=== PATIENT | female | born 1970 | race Caucasian/White ===

== ENCOUNTER 2023-11-07 14:59 | Day surgery (SDC) | payer OTHER ==
[2023-11-07] VITALS (7 sets, daily range): BP systolic 97–117; BP diastolic 65–73; PULSE 56–68; TEMP 97.5–98
[~2023-11-07] VITALS: Ht 170.2 cm; Wt 98.5 kg
[~2023-11-07 14:59] MED LIST: NORCO 325 MG-51 TAB PO; PERCOCET 325 MG1 TA2 PO
[2023-11-07] MEDS ORDERED: Ondansetron 4 MG/2 ML VIAL IV ONE (15:45)
[2023-11-07] MEDS ORDERED: NS 1,000 ML IV ONE (15:45)
[2023-11-07] MEDS ORDERED: Morphine 4 MG/ML VIAL IV PRN (15:45)
[2023-11-07 15:53] LABS: BASO # 0.1 K/mm3 (0.0-0.2); BASO % 0.4 % (0.0-2.0); EOS # 0.1 K/mm3 (0.0-0.7); EOS % 0.8 % (0.0-4.0); GRAN # 9.7 K/mm3 (1.4-6.5); GRAN % 82.7 % (42.2-75.2); HEMOGLOBIN 12.1 g/dl (12.5-16.0); LYMPH # 1.1 K/mm3 (1.2-3.4); LYMPH % 9.5 % (20.0-51.0); MEAN CELL VOLUME 90 fl (80.0-100.0); MEAN CORPUSCULAR HEMOGLOBIN 30 pg (27-31); MEAN CORPUSCULAR HGB CONC 33 g/dl (33.0-37.0); MEAN PLATELET VOLUME 9.5 fl (7.4-10.4); MONO # 0.7 K/mm3 (0.1-0.6); MONO % 6.3 % (1.7-9.3); PLATELET COUNT 202 K/mm3 (130-400); RED BLOOD COUNT 4.04 M/mm3 (4.10-5.30); REDCELL DISTRIBUTION WIDTH-CV 12.2 % (11.5-14.5)
[2023-11-07 15:55] LABS: HEMATOCRIT 36.3 % (37.0-47.0)
[2023-11-07 16:09] LABS: ALBUMIN 3.7 g/dL (3.5-5.0); BILIRUBIN,TOTAL 0.3 mg/dL (0.2-1.2); CALCIUM 8.9 mg/dL (8.4-10.2); CREATININE, serum 0.83 mg/dL (0.57-1.11); POTASSIUM 4.1 mEq/L (3.5-4.5); TOTAL PROTEIN 7.1 g/dl (6.2-8.1)
[2023-11-07 16:35] LABS: COLLECTION METHOD CLEAN CATCH
[2023-11-07 16:45] LABS: URINE APPEARANCE CLEAR (CLEAR/HAZY); URINE BLOOD TRACE (NEGATIVE); URINE COLOR YELLOW (YELLOW); URINE GLUCOSE NEGATIVE (NEGATIVE); URINE KETONE NEGATIVE (NEGATIVE); URINE NITRATE NEGATIVE (NEGATIVE); URINE PROTEIN(semi-quant) NEGATIVE (NEGATIVE); URINE UROBILINOGEN 0.2 E.U/dL (0.2-1.0)
[2023-11-07] MEDS ORDERED: Iohexol 300 - 100 ML VIAL IV ONE (17:20)
[2023-11-07] MEDS ORDERED: NS 100 ML IV SCH (17:21)
[2023-11-07] MEDS ORDERED: Succinylcholine PF 200 MG/10 ML SYRINGE IV ONE (18:19)
[2023-11-07] MEDS ORDERED: Rocuronium 50 MG/5 ML Multi-Dose VIAL ONE (18:19)
[2023-11-07] MEDS ORDERED: Lidocaine PF 2% (20 MG/ML) 5 ML VIAL ONE (18:19)
[2023-11-07] MEDS ORDERED: fentaNYL 50 MCG/ML 2 ML VIAL ONE (18:20)
[2023-11-07] MEDS ORDERED: Ondansetron 4 MG/2 ML VIAL ONE (18:44)
[2023-11-07] MEDS ORDERED: dexAMETHasone 10 MG/ML VIAL ONE (18:44)
[2023-11-07] MEDS ORDERED: fentaNYL 50 MCG/ML 1 ML SYRINGE/VIAL [PACU/SDC ONLY] IV PRN (19:00)
[2023-11-07] MEDS ORDERED: HYDROmorphone 1 MG/1 ML SYRINGE [PACU/SDC ONLY] IV PRN (19:00)
[2023-11-07] MEDS ORDERED: Meperidine 50 MG/ML 1 ML VIAL IV PRN (19:00)
[2023-11-07] MEDS ORDERED: hydrALAZINE 20 MG/ML 1 ML VIAL IV PRN (19:00)
[2023-11-07] MEDS ORDERED: Topical Skin Adhesive 1 EACH (1 ML) TOP ONE (19:00)
[2023-11-07] MEDS ORDERED: Ondansetron 4 MG/2 ML VIAL IV PRN ×2 (19:00→19:30)
[2023-11-07] MEDS ORDERED: Ketorolac 30 MG/ML VIAL ONE (19:02)
[2023-11-07] MEDS ORDERED: AMOXICILLIN 8751 TAB PO (19:22)
[2023-11-07] MEDS ORDERED: ROXICODONE 55 MG/TAB PO (19:22)
[2023-11-07] MEDS ORDERED: Acetaminophen 325 MG TAB PO PRN (19:30)
[2023-11-07] MEDS ORDERED: Ibuprofen 600 MG TAB PO PRN (19:30)
[2023-11-07] MEDS ORDERED: HYDROmorphone 0.5 MG/0.5 ML SYRINGE IV ONE (20:14)
[2023-11-07] MEDS ORDERED: Home oxyCODONE/Acetaminophen 5/325 MG #4 TAB/PACK PO ONE (21:15)
--- NOTE | 2023-11-07 22:02 | NUR ---
Patient arrived to surgical unit from PACU at approximately 2004. PACU nurse gave pain medication at that time. Patient reported pain to be at a 6. 3 lap sites to abdomen are open to air, glue is intact. Sites without drainage or redness. IV to left AC, completed IV fluids. Tolerating PO fluids, and ate jello. Denies having any nauea. Denies SOB and dyspnea. LS CTA. HRR. BSAx4. No edema. Patient able to void. Awaiting for patient to be ready to discharge at this time.
--- NOTE | 2023-11-07 22:32 | NUR ---
Went over discharge instructions with patient at 2220. This nurse unable to get home medication out of [facility], but [employer] house operator was able to overide it and give it to this nurse. Home medication pack of Oxycodone given to patient. Aware of pain medication and ABX being sent to pharmacy and to pick them up in the morning. Voiced understanding of all discharge instructions. IV to left AC taken out. Patient discharged at 2230. [employer] employee assisted patient out via wheelchair with spouse.
== END 2023-11-07 22:30 | disposition home or self-care (01) ==
LOC: COL.ER 14:59 → SDCO 18:20 → COL.ER 18:20 → SURG 18:47 → SDCO 18:47 → COL.ER 18:47 → SURG 18:48 → SDCO 22:30 → SURG 22:30
PROVIDERS: Personal Emergency Response Attendant
DX: K35.891 Other acute appendicitis without perforation, with gangrene (principal)
CPT/HCPCS: OP; G0378; J1100; J1170; J1885; J2270; J2405; J2543; J2704; J3010; J7030; Q9967